=== PATIENT | female | born 1965 | race African-American/Black ===

== ENCOUNTER 2022-05-23 20:27 | Inpatient (IN) ==
[2022-05-23] MEDS ORDERED: ASPIRIN 325 MG TABLET PO STA (20:52)
[2022-05-23] MEDS ORDERED: ONDANSETRON 4 MG/2 ML VIAL IV STA (20:52)
[2022-05-23] MEDS ORDERED: NITROGLYCERIN 2% OINT 1 INCH/GM PACK TOP STA (20:52)
[2022-05-23] MEDS ORDERED: ALBUTEROL/IPRATROPIUM 3 ML NEB RESP TX STA (20:52)
[2022-05-23] MEDS ORDERED: MORPHINE 2 MG/1 ML SYRINGE IV STA (20:52)
[2022-05-23] MEDS ORDERED: methylPREDNISolone SOD SUC 125 MG/2 ML VIAL IV STA (20:52)
[2022-05-23] MEDS ORDERED: ALBUTEROL NEB SOLN 5 MG/ML 20 ML/BOTTLE CONT NEB SCH (21:00)
[2022-05-23] MEDS ORDERED: ALBUTEROL 2.5 MG/3 ML NEB RESP TX ONE (21:03)
[2022-05-23] MEDS ORDERED: FUROSEMIDE 40 MG/4 ML VIAL IV STA (21:33)
[2022-05-23 21:35] LABS: PT Patient Result 10.9 SECS (10.1-12.1)
[2022-05-23 21:36] LABS: Alanine Aminotransferase 29 U/L (13-56); Albumin 3.3 G/DL (3.4-5.0); Alkaline Phosphatase 67 U/L (45-117); Aspartate Amino Transferase 32 U/L (0-37); Bilirubin,Total < 0.39 MG/DL (0.20-1.00); Blood Urea Nitrogen 10 MG/DL (7-18); Calcium 8.3 MG/DL (8.5-10.1); Carbon Dioxide 23 MMOL/L (21-32); Chloride 110 MMOL/L (98-107); Glucose 65 MG/DL (74-106); Osmolality,Calculated 275.4 MOS/KG (273-304); Potassium 3.8 MMOL/L (3.5-5.1); Sodium 140 MMOL/L (136-145); Total Protein 7.3 G/DL (6.4-8.2)
[2022-05-23 21:44] LABS: Basophils % 0.2 % (0.0-0.8); Eosinophils # 0.2 10*3/uL (0.0-0.87); Eosinophils % 1.9 % (0.00-10.9); Immature Granulocytes % 0.8 %; Immature Granulocytes Absolute 0.08 #; Lymphocytes % 20.9 % (21.3-54.2); Mean Corpuscular HGB Conc 25.3 GM/DL (32-36); Mean Corpuscular Volume 64.3 FL (87-102); Monocytes % 10.4 % (1.7-12.7); NRBC # 0.04 10*3/uL; Neutrophils % 65.8 % (38.7-73.9); Platelet Count 318 T/CUMM (130-400); Red Blood Count 2.27 MC/CUMM (3.8-5.5); Red Cell Distribution Width 39.2 % (9.3-17.3); White Blood Count 9.6 T/CUMM (4-12)
[2022-05-23 21:48] LABS: Hematocrit 14.6 VOL% (35.7-47.0); Hemoglobin 3.7 GM/DL (12.0-16.0)
[2022-05-23] MEDS ORDERED: SODIUM CHLORIDE 0.9% 1,000 ML IV PRN (21:56)
[2022-05-23 22:46] LABS: Folate 14.95 NG/ML (5.38-24.0); Vitamin B12 542 PG/ML (211-911)
[2022-05-23 23:04] LABS: Basophils % 0.2 % (0.0-0.8); Eosinophils # 0.2 10*3/uL (0.0-0.87); Eosinophils % 1.9 % (0.00-10.9); Immature Granulocytes % 0.8 %; Immature Granulocytes Absolute 0.08 #; Lymphocytes % 20.9 % (21.3-54.2); Mean Corpuscular HGB Conc 25.3 GM/DL (32-36); Mean Corpuscular Volume 64.3 FL (87-102); Monocytes % 10.4 % (1.7-12.7); NRBC # 0.04 10*3/uL; Neutrophils % 65.8 % (38.7-73.9); Platelet Count 318 T/CUMM (130-400); Red Blood Count 2.27 MC/CUMM (3.8-5.5); Red Cell Distribution Width 39.2 % (9.3-17.3); White Blood Count 9.6 T/CUMM (4-12)
[2022-05-23 23:05] LABS: Hematocrit 14.6 VOL% (35.7-47.0); Hemoglobin 3.7 GM/DL (12.0-16.0)
[2022-05-23 23:30] LABS: Sedimentation Rate-Westergren 50 MM/HR (0-30)
[2022-05-23] MEDS ORDERED: hydrALAZINE 20 MG/1 ML VIAL IV PRN (23:31)
[2022-05-23] MEDS ORDERED: ONDANSETRON 4 MG/2 ML VIAL IV PRN (23:31)
[2022-05-23] MEDS ORDERED: PANTOPRAZOLE 40 MG VIAL IV STA (23:32)
[2022-05-24] MEDS: ALBUTEROL/IPRATROPIUM 3 ML NEB RESP TX SCH ×4 (00:11→20:25)
[2022-05-24] MEDS ORDERED: SODIUM CHLORIDE 0.9% 1,000 ML IV PRN ×2 (02:26→09:50)
[2022-05-24] MEDS ORDERED: FUROSEMIDE 40 MG/4 ML VIAL IV ONE (02:45)
[2022-05-24] MEDS ORDERED: FUROSEMIDE 20 MG/2 ML VIAL IV ONE (02:45)
[2022-05-24 06:24] LABS: Basophils % 0.3 % (0.0-0.8); Hematocrit 21.8 VOL% (35.7-47.0); Immature Granulocytes % 1.5 %; Immature Granulocytes Absolute 0.18 #; Lymphocytes # 0.9 10*3/uL (1.4-4.0); Lymphocytes % 7.6 % (21.3-54.2); Mean Corpuscular HGB Conc 28.9 GM/DL (32-36); Mean Corpuscular Volume 71.7 FL (87-102); Monocytes # 0.2 10*3/uL (0.11-0.8); Monocytes % 1.6 % (1.7-12.7); Platelet Count 305 T/CUMM (130-400); White Blood Count 11.6 T/CUMM (4-12)
[2022-05-24 06:27] LABS: Hemoglobin 6.3 GM/DL (12.0-16.0); Red Blood Count 3.04 MC/CUMM (3.8-5.5)
[2022-05-24] MEDS: PANTOPRAZOLE 40 MG VIAL IV SCH ×3 (08:05→20:45)
[2022-05-24] MEDS: FUROSEMIDE 40 MG/4 ML VIAL IV SCH ×2 (08:05→16:53)
[2022-05-24 08:52] LABS: Hemoglobin A1 (Alkaline) 97.9 % (96.5-98.5); Hemoglobin A2 (Alkaline) 2.1 % (1.5-3.5)
[2022-05-24 10:43] LABS: Risk Ratio 2.05; VLDL Cholesterol 8.8 MG/DL
[2022-05-24 14:21] LABS: Bilirubin,Urine Negative (Negative); Blood, Urine Negative (Negative); Glucose,Urine (UA) Negative (Negative); Ketones,Urine Negative (Negative); Nitrite,Urine Negative (Negative); Protein,Urine Negative (Negative); RBC,Urine 2 /HPF (0-4); Squamous Epithelial Cell,Urine Occasional /HPF (0-10); Urine Appearance Clear (Clear); Urine Color Yellow (Yellow); Urine Specific Gravity 1.015 (1.001-1.035); Urine Urobilinogen 0.2 eU/dL (<2.0)
[2022-05-24 14:47] LABS: Barbiturates Screen,Urine Negative (Negative); Benzodiazepines Screen,Urine Negative (Negative); Cannabinoid Screen,Urine Negative (Negative); Opiate Screen,Urine Positive (Negative); Phencyclidine Screen,Urine Negative (Negative)
[2022-05-24 18:43] LABS: Hematocrit 27.2 VOL% (35.7-47.0)
[2022-05-24 18:44] LABS: Hemoglobin 8.4 GM/DL (12.0-16.0)
[2022-05-25] MEDS: ALBUTEROL/IPRATROPIUM 3 ML NEB RESP TX SCH ×4 (00:02→18:40)
[2022-05-25 00:48] LABS: Hematocrit 26.3 VOL% (35.7-47.0); Hemoglobin 8.2 GM/DL (12.0-16.0)
[2022-05-25 06:46] LABS: Calcium 8.5 MG/DL (8.5-10.1); Osmolality,Calculated 279.4 MOS/KG (273-304); Potassium 3.1 MMOL/L (3.5-5.1)
[2022-05-25 07:24] LABS: Hematocrit 27.8 VOL% (35.7-47.0); Hemoglobin 8.3 GM/DL (12.0-16.0)
[2022-05-25] MEDS: POTASSIUM CHLORIDE RIDER 10 MEQ/100 ML PREMIX IV PRN ×2 (07:46→08:51)
[2022-05-25] MEDS: PANTOPRAZOLE 40 MG VIAL IV SCH ×2 (08:51→21:16)
[2022-05-25] MEDS: FUROSEMIDE 40 MG/4 ML VIAL IV SCH ×2 (08:51→15:25)
[2022-05-25 08:53] LABS: Basophils # 0.1 10*3/uL (0.0-0.2); Basophils % 0.5 % (0.0-0.8); Eosinophils % 0.3 % (0.00-10.9); Hematocrit 28.6 VOL% (35.7-47.0); Hemoglobin 8.7 GM/DL (12.0-16.0); Immature Granulocytes % 0.7 %; Immature Granulocytes Absolute 0.08 #; Lymphocytes % 17.2 % (21.3-54.2); Mean Corpuscular HGB Conc 30.4 GM/DL (32-36); Mean Corpuscular Volume 73.9 FL (87-102); Monocytes # 1.2 10*3/uL (0.11-0.8); Monocytes % 10.2 % (1.7-12.7); NRBC # 0.17 10*3/uL; Neutrophils % 71.1 % (38.7-73.9); Platelet Count 394 T/CUMM (130-400); Red Blood Count 3.87 MC/CUMM (3.8-5.5); White Blood Count 11.8 T/CUMM (4-12)
[2022-05-25 10:12] LABS: Platelet Estimate Normal
[2022-05-25 10:14] LABS: Anisocytosis 2+; Hypochromia 1+; Polychromasia Slight
[2022-05-25] MEDS: LACTATED RINGERS 1,000 ML IV SCH (10:50)
[2022-05-25] MEDS ORDERED: propofoL 200 MG/20 ML VIAL IV ONE (11:36)
[2022-05-25] MEDS ORDERED: LIDOCAINE 2% 5 ML VIAL ONE (11:36)
[2022-05-25 13:34] LABS: Hematocrit 29.9 VOL% (35.7-47.0); Hemoglobin 9.2 GM/DL (12.0-16.0)
[2022-05-26] MEDS: ALBUTEROL/IPRATROPIUM 3 ML NEB RESP TX SCH ×4 (01:40→19:58)
[2022-05-26 05:18] LABS: Basophils % 0.3 % (0.0-0.8); Eosinophils # 0.1 10*3/uL (0.0-0.87); Eosinophils % 0.8 % (0.00-10.9); Hematocrit 31.6 VOL% (35.7-47.0); Hemoglobin 9.4 GM/DL (12.0-16.0); Immature Granulocytes % 0.4 %; Immature Granulocytes Absolute 0.05 #; Lymphocytes % 16.5 % (21.3-54.2); Mean Corpuscular HGB Conc 29.7 GM/DL (32-36); Mean Corpuscular Volume 74.5 FL (87-102); Monocytes # 1.4 10*3/uL (0.11-0.8); Monocytes % 11.6 % (1.7-12.7); Neutrophils % 70.4 % (38.7-73.9); Platelet Count 572 T/CUMM (130-400); Red Blood Count 4.24 MC/CUMM (3.8-5.5); White Blood Count 11.9 T/CUMM (4-12)
[2022-05-26 05:33] LABS: Calcium 8.8 MG/DL (8.5-10.1); Osmolality,Calculated 278.4 MOS/KG (273-304); Potassium 3.2 MMOL/L (3.5-5.1)
[2022-05-26] MEDS: FUROSEMIDE 40 MG/4 ML VIAL IV SCH ×2 (09:12→15:35)
[2022-05-26] MEDS: PANTOPRAZOLE 40 MG VIAL IV SCH ×2 (09:13→22:00)
[2022-05-26] MEDS: LACTATED RINGERS 1,000 ML IV SCH (11:35)
[2022-05-26] MEDS: POTASSIUM CHLORIDE 20 MEQ TABLET PO PRN ×4 (11:36→17:35)
[2022-05-27] MEDS: ALBUTEROL/IPRATROPIUM 3 ML NEB RESP TX SCH ×4 (00:37→18:15)
[2022-05-27] MEDS ORDERED: diphenhydrAMINE CAP 25 MG CAPSULE PO PRN (00:41)
[2022-05-27 04:26] LABS: Basophils % 0.3 % (0.0-0.8); Eosinophils # 0.1 10*3/uL (0.0-0.87); Eosinophils % 1.2 % (0.00-10.9); Hematocrit 30.8 VOL% (35.7-47.0); Immature Granulocytes % 0.4 %; Immature Granulocytes Absolute 0.05 #; Lymphocytes # 1.6 10*3/uL (1.4-4.0); Lymphocytes % 14.3 % (21.3-54.2); Mean Corpuscular HGB Conc 29.2 GM/DL (32-36); Mean Corpuscular Volume 75.1 FL (87-102); Monocytes # 1.3 10*3/uL (0.11-0.8); Monocytes % 11.4 % (1.7-12.7); NRBC # 0.04 10*3/uL; Neutrophils % 72.4 % (38.7-73.9); Platelet Count 663 T/CUMM (130-400); White Blood Count 11.3 T/CUMM (4-12)
[2022-05-27 04:48] LABS: Calcium 8.7 MG/DL (8.5-10.1); Osmolality,Calculated 281.4 MOS/KG (273-304); Potassium 3.7 MMOL/L (3.5-5.1)
[2022-05-27] MEDS ORDERED: MAGNESIUM SULF RIDER 2 GM/50 ML PREMIX IV ONE (08:25)
[2022-05-27] MEDS: PANTOPRAZOLE 40 MG VIAL IV SCH ×2 (09:57→21:33)
[2022-05-27] MEDS: FUROSEMIDE 40 MG/4 ML VIAL IV SCH ×2 (09:57→15:57)
[2022-05-27] MEDS: LACTATED RINGERS 1,000 ML IV SCH (10:03)
[2022-05-27] MEDS ORDERED: MICONAZOLE 2% VAG CREAM 45 GM TUBE TOP PRN (10:42)
[2022-05-27] MEDS ORDERED: POLYETHYLENE GLYCOL POWDER 255 GM BOTTLE PO ONE ×2 (18:00)
[2022-05-27] MEDS: ACETAMINOPHEN 325 MG TABLET PO PRN (21:32)
[2022-05-28] MEDS: ALBUTEROL/IPRATROPIUM 3 ML NEB RESP TX SCH ×4 (00:11→19:15)
[2022-05-28] MEDS: ACETAMINOPHEN 325 MG TABLET PO PRN (01:47)
[2022-05-28] MEDS ORDERED: POLYETHYLENE GLYCOL POWDER 255 GM BOTTLE PO ONE (05:00)
[2022-05-28 05:56] LABS: Calcium 8.9 MG/DL (8.5-10.1); Potassium 3.2 MMOL/L (3.5-5.1)
[2022-05-28 06:25] LABS: Basophils % 0.4 % (0.0-0.8); Eosinophils # 0.2 10*3/uL (0.0-0.87); Eosinophils % 1.8 % (0.00-10.9); Hematocrit 34.2 VOL% (35.7-47.0); Immature Granulocytes % 0.3 %; Immature Granulocytes Absolute 0.03 #; Lymphocytes # 1.8 10*3/uL (1.4-4.0); Lymphocytes % 18.4 % (21.3-54.2); Mean Corpuscular HGB Conc 29.5 GM/DL (32-36); Mean Platelet Volume 9.1 FL (9.6-12.0); Monocytes # 1.1 10*3/uL (0.11-0.8); Monocytes % 10.8 % (1.7-12.7); NRBC # 0.02 10*3/uL; Neutrophils % 68.3 % (38.7-73.9); Platelet Count 727 T/CUMM (130-400); Red Blood Count 4.56 MC/CUMM (3.8-5.5); White Blood Count 9.8 T/CUMM (4-12)
[2022-05-28 06:26] LABS: Hemoglobin 10.1 GM/DL (12.0-16.0)
[2022-05-28] MEDS: FUROSEMIDE 40 MG/4 ML VIAL IV SCH ×2 (10:27→16:29)
[2022-05-28] MEDS: PANTOPRAZOLE 40 MG VIAL IV SCH ×2 (10:27→20:24)
[2022-05-28] MEDS ORDERED: LIDOCAINE 2% 5 ML VIAL ONE (14:03)
[2022-05-28] MEDS ORDERED: propofoL 200 MG/20 ML VIAL IV ONE ×2 (14:03→14:10)
[2022-05-28] MEDS ORDERED: PHENYLEPHRINE 1 MG/10 ML SYRINGE IV ONE (14:11)
[2022-05-28] MEDS: LACTATED RINGERS 1,000 ML IV SCH (14:19)
[2022-05-29] MEDS: ACETAMINOPHEN 325 MG TABLET PO PRN (00:10)
[2022-05-29] MEDS: ALBUTEROL/IPRATROPIUM 3 ML NEB RESP TX SCH ×4 (01:43→19:55)
[2022-05-29 04:26] LABS: Basophils % 0.4 % (0.0-0.8); Eosinophils # 0.2 10*3/uL (0.0-0.87); Eosinophils % 1.9 % (0.00-10.9); Hematocrit 30.9 VOL% (35.7-47.0); Immature Granulocytes % 0.4 %; Immature Granulocytes Absolute 0.04 #; Lymphocytes # 1.6 10*3/uL (1.4-4.0); Lymphocytes % 16.4 % (21.3-54.2); Mean Corpuscular HGB Conc 29.1 GM/DL (32-36); Mean Corpuscular Volume 74.1 FL (87-102); Mean Platelet Volume 8.9 FL (9.6-12.0); Monocytes # 1.3 10*3/uL (0.11-0.8); Monocytes % 13.3 % (1.7-12.7); Neutrophils % 67.6 % (38.7-73.9); Platelet Count 867 T/CUMM (130-400); Red Blood Count 4.17 MC/CUMM (3.8-5.5); White Blood Count 9.9 T/CUMM (4-12)
[2022-05-29 04:45] LABS: Potassium 3.7 MMOL/L (3.5-5.1)
[2022-05-29] MEDS: PANTOPRAZOLE 40 MG VIAL IV SCH ×2 (09:37→21:06)
[2022-05-29] MEDS: POTASSIUM CHLORIDE 20 MEQ TABLET PO PRN (09:37)
[2022-05-29] MEDS: FUROSEMIDE 40 MG/4 ML VIAL IV SCH ×2 (09:39→17:12)
[2022-05-29] MEDS ORDERED: DIAZEPAM 5 MG TABLET PO ONE (10:35)
[2022-05-29] MEDS: SODIUM CHLORIDE 0.45% 1,000 ML IV SCH (10:55)
[2022-05-29] MEDS: MORPHINE 2 MG/1 ML SYRINGE IV PRN ×2 (14:11→21:06)
[2022-05-30] MEDS: ALBUTEROL/IPRATROPIUM 3 ML NEB RESP TX SCH ×3 (00:26→14:05)
[2022-05-30] MEDS: PANTOPRAZOLE 40 MG VIAL IV SCH (08:16)
[2022-05-30] MEDS: FUROSEMIDE 40 MG/4 ML VIAL IV SCH (08:17)
[2022-05-30] MEDS: SODIUM CHLORIDE 0.45% 1,000 ML IV SCH (12:06)
[2022-05-30 12:46] VITALS: BP 146/80
== END 2022-05-30 16:05 | disposition home or self-care (01) | DRG 377 ==
LOC: N.ED 20:27 → N.EDINP 23:31 → SUATTDRO 23:31 → N.ED 05-24 01:10 → N.EDINP 05-24 10:54 → N.TELEN 05-24 11:01
PROVIDERS: ADMIT Internal Medicine; ATTEND Internal Medicine